=== PATIENT | male | born 1990 | race Caucasian/White ===

== ENCOUNTER 2018-06-08 12:16 | Emergency (ER) | payer OTHER ==
[~2018-06-08] VITALS: Ht 175.3 cm; Wt 81.6 kg
--- NOTE | 2018-06-08 12:30 | NUR ---
PT BIB [facility], SEIZURE EPISODE LASTED 2-4 MINS PER ROOMATE. +DIZZY. PT STS HE'S FEELING SI/-HI "I WANT TO JUMP IN FRONT OF TRAFFIC". ALERT AND ORIENTED X 4, VERBALLY RESPONSIVE, AND ABLE TO MAKE NEEDS KNOWN. PADDED SIDERAILS WITH BLANKET TO PREVENT INJURY. ON ROOM AIR, 02 SAT 98%, DENIES ANY PAIN AT THIS TIME, BREATHING EVENLY, AND UNLABORED. WILL CONTINUE TO MONTOR ACCORDINGLY.
[2018-06-08 13:33] LABS: BASOPHILS % (AUTO) 0.2 % (0.0-2.0); EOSINOPHILS % (AUTO) 0.6 % (0.0-6.0); HEMATOCRIT 47 % (39-51); HEMOGLOBIN 16.5 g/dL (13.5-17.5); LYMPHOCYTES # (AUTO) 0.6 /CMM (0.8-4.8); MEAN CORPUSCULAR HGB CONC 35 g/dl (31.0-36.0); MEAN CORPUSCULAR VOLUME 92 fL (80-96); MONOCYTES # (AUTO) 0.4 /CMM (0.1-1.30); MONOCYTES % (AUTO) 6.3 % (2.0-12.0); NEUTROPHILS # (AUTO) 4.8 /CMM (1.8-8.9); NEUTROPHILS % (AUTO) 82.9 % (43.0-81.0); PLATELET COUNT (AUTO) 264 /CMM (150-450); WHITE BLOOD COUNT (AUTO) 5.8 K/uL (4.3-11.0)
[2018-06-08 13:43] LABS: CALCIUM, SERUM 9.2 mg/dL (8.5-10.1); CARBON DIOXIDE 29 mmol/L (21-32); CHLORIDE 100 mmol/L (98-107); CREATININE 0.9 mg/dL (0.6-1.3); GLUCOSE 103 mg/dL (74-106); POTASSIUM 4.2 mmol/L (3.5-5.1); SODIUM SERUM 137 mmol/L (136-145); UREA NITROGEN, BLOOD 10 mg/dL (7-18)
[2018-06-08 13:48] LABS: ALANINE AMINOTRANSFERASE 15 U/L (12-78); ALBUMIN 3.9 g/dL (3.4-5.0); ALCOHOL, BLOOD < 3 mg/dL (0-0); ALKALINE PHOSPHATASE 84 U/L (46-116); ASPARTATE AMINOTRANSFERASE 21 U/L (15-37); BILIRUBIN,DIRECT 0.3 mg/dL (0.0-0.2); BILIRUBIN,TOTAL 1.3 mg/dL (0.2-1.0); SALICYLATE 2.8 mg/dL (2.8-20.0); TOTAL PROTEIN, SERUM 7.3 g/dL (6.4-8.2)
[2018-06-08 13:49] LABS: ACETAMINOPHEN 0 ug/ml (10-30)
[2018-06-08 13:57] LABS: VALPROIC ACID 46 ug/mL (50-100)
[2018-06-08] MEDS ORDERED: VALPROATE 500 MG in IV NS 0.9% 100 ML IV STA (15:23)
[2018-06-08 15:46] LABS: APPEARANCE,URINE Clear (CLEAR); BILIRUBIN,URINE SMALL (NEGATIVE); BLOOD, URINE Negative Ery/uL (NEGATIVE); COLOR,URINE Yellow (YELLOW); KETONES,URINE 40 (NEGATIVE); LEUKOCYTE ESTERASE ,URINE Negative (NEGATIVE); NITRITE, URINE Negative (NEGATIVE); PROTEIN,URINE Negative (NEGATIVE); UGLUCOSE Negative (NEGATIVE); UROBILINOGEN,URINE 0.2 EU/dL (0.2)
[2018-06-08 17:40] LABS: BACTERIA,URINE Rare /HPF (None Seen); RBC,URINE 0-2 /HPF (0-2); SQUAMOUS EPITHELIAL CELL,UR Few /HPF (None Seen); WBC,URINE 0-2 /HPF (0-3)
--- NOTE | 2018-06-08 17:52 | NUR ---
LEN AGRIBUSINESS PROFESSOR FOR PSYCH EVAL.
--- NOTE | 2018-06-08 19:30 | NUR ---
Received pt from SAVANNAH Srivastava. Awaiting transfer to [facility] for SI. Pt appears depressed, states "I am having a difficult time after my mom ." Has SI with plan to "hang myself." He is A, O/4, moves all extremities without difficulty. Will continue to monitor.
--- NOTE | 2018-06-08 19:32 | NUR ---
called [facility] and spoke to Dinah NUÑEZ and report given. [id number] [facility] phone number: [phone] ext [phone] psych MD: Dr. Fields
--- NOTE | 2018-06-08 19:34 | NUR ---
endorsed to Margaret NUÑEZ for fidel.
--- NOTE | 2018-06-08 22:00 | NUR ---
Pt will be transportted via [facility] to [facility]. Report given to tod, EMT. Pt notified of transfer.
[2018-06-08 22:10] VITALS: BP 136/74
[2018-06-09] MEDS ORDERED: ALPR2TAB2 PO (05:15)
[2018-06-09] MEDS ORDERED: DIVA500T2 PO ×2 (05:15)
== END 2018-06-08 22:15 ==
LOC: ER 12:30
DX: R45.851 Suicidal ideations (principal); R56.9 Unspecified convulsions; I72.9 Aneurysm of unspecified site; F31.9 Bipolar disorder, unspecified; F10.10 Alcohol abuse, uncomplicated; F17.200 Nicotine dependence, unspecified, uncomplicated; Y90.0 Blood alcohol level of less than 20 mg/100 ml; Z60.2 Problems related to living alone
CPT/HCPCS: 36415; 80048-TC; 80076-TC; 80164-TC; 80305; 81000-TC; 85025-TC; A4606; G0480; J3490; J7030; Z7610

== ENCOUNTER 2018-06-08 23:44 | Inpatient (IN) | payer OTHER ==
[~2018-06-08] VITALS: Ht 177.8 cm; Wt 77.6 kg
[2018-06-09] MEDS ORDERED: LORAZEPAM INJ 2 MG/ML VIAL IVP ONE
[2018-06-09] MEDS ORDERED: VALPROIC ACID 250 MG/5 ML UDC PO ONE
[2018-06-09] MEDS ORDERED: METOCLOPRAMIDE HCL 10 MG/2 ML VIAL IV ONE
[2018-06-09] MEDS ORDERED: METOCLOPRAMIDE HCL 10 MG/2 ML VIAL ONE
[2018-06-09] MEDS ORDERED: VALPROIC ACID 250 MG/5 ML UDC ONE
--- NOTE | 2018-06-09 | NUR ---
PT BROUGHT IN BY AMBULANCE FROM [facility] REPORTING 2 SEIZURES LASTING 2 MINUTES. PT PUT ON THE MONITOR AND PULSE OX.
[2018-06-09] MEDS ORDERED: LORAZEPAM INJ 2 MG/ML VIAL ONE (00:01)
--- NOTE | 2018-06-09 00:18 | NUR ---
PT VOMITTED AFTER ADMINISTRATION OF DEPEKENE.
--- NOTE | 2018-06-09 00:22 | NUR ---
PT TAKEN TO CT IN WHEELCHAIR.
[2018-06-09] MEDS ORDERED: MISCELLANEOUS MED 1 EA EA XX ONE (00:30)
--- NOTE | 2018-06-09 00:30 | NUR ---
PT BROUGHT BACK FROM CT. AWAKE AND ORIENTATED. SEMI-FOWLERS ON BED. PUT ON MONITOR.
[2018-06-09 00:37] LABS: BASOPHILS # (AUTO) 0.1 /CMM (0.0-0.2); BASOPHILS % (AUTO) 0.5 % (0.0-2.0); HEMATOCRIT 46 % (39-51); HEMOGLOBIN 15.5 g/dL (13.5-17.5); LYMPHOCYTES # (AUTO) 1.9 /CMM (0.8-4.8); MEAN CORPUSCULAR HGB CONC 34 g/dl (31.0-36.0); MEAN CORPUSCULAR VOLUME 93 fL (80-96); MONOCYTES # (AUTO) 0.9 /CMM (0.1-1.30); MONOCYTES % (AUTO) 7.8 % (2.0-12.0); NEUTROPHILS # (AUTO) 8.3 /CMM (1.8-8.9); NEUTROPHILS % (AUTO) 73.7 % (43.0-81.0); PLATELET COUNT (AUTO) 303 /CMM (150-450); RED BLOOD CELL COUNT(AUTO) 4.92 MIL/uL (4.5-6.0); WHITE BLOOD COUNT (AUTO) 11.3 K/uL (4.3-11.0)
[2018-06-09 00:50] LABS: CALCIUM, SERUM 9.3 mg/dL (8.5-10.1); CARBON DIOXIDE 20 mmol/L (21-32); CHLORIDE 100 mmol/L (98-107); CREATININE 1.4 mg/dL (0.6-1.3); GLUCOSE 98 mg/dL (74-106); POTASSIUM 2.9 mmol/L (3.5-5.1); SODIUM SERUM 139 mmol/L (136-145); UREA NITROGEN, BLOOD 11 mg/dL (7-18); VALPROIC ACID 45 ug/mL (50-100)
[2018-06-09] MEDS ORDERED: DIVALPROEX SODIUM 500 MG TABLET.DR PO ONE ×2 (00:52→01:00)
[2018-06-09 00:55] LABS: ALBUMIN 3.8 g/dL (3.4-5.0); ALCOHOL, BLOOD < 3 mg/dL (0-0); ALKALINE PHOSPHATASE 84 U/L (46-116); ASPARTATE AMINOTRANSFERASE 25 U/L (15-37); BILIRUBIN,DIRECT 0.2 mg/dL (0.0-0.2); BILIRUBIN,TOTAL 1.2 mg/dL (0.2-1.0); TOTAL PROTEIN, SERUM 7.3 g/dL (6.4-8.2)
--- NOTE | 2018-06-09 01:01 | NUR ---
DEPAKOTE IVPB NOT AVAILABLE IN PYXIS, NIGHT LOCKER, OR ON THE FLOOR. MD NOTIFIED. NEW ORDERS GIVEN. PT REC'D 500MG PO DEPAKOTE AND VOMITTED THE MEDICATION UP. MD NOTIFIED.
[2018-06-09 01:06] LABS: ALANINE AMINOTRANSFERASE 17 U/L (12-78)
[2018-06-09] MEDS ORDERED: LEVETIRACETAM (500MG) 500 MG/5 ML VIAL IV ONE (01:06)
--- NOTE | 2018-06-09 01:27 | NUR ---
PT RECEIVING THE IV KEPPRA INFUSION. Patient is resting comfortably in bed with eyes closed. Easily aroused. VSS
[2018-06-09] MEDS ORDERED: ONDANSETRON HCL/PF 4 MG/2 ML VIAL IVP PRN (01:30)
[2018-06-09] MEDS ORDERED: MAGNESIUM HYDROXIDE 30 ML UDC PO PRN (01:30)
[2018-06-09] MEDS ORDERED: Z GUARD REMEDY 2 OZ OINT TP PRN (01:30)
[2018-06-09] MEDS ORDERED: LORAZEPAM INJ 2 MG/ML VIAL IV PRN (01:30)
[2018-06-09] MEDS ORDERED: LEVETIRACETAM (500MG) 500 MG in IV NS 0.9% 100 ML IV SCH ×2 (01:30→13:00)
[2018-06-09] MEDS ORDERED: MAG HYDROX/AL HYDROX/SIMETH 30 ML UDC PO PRN (01:30)
[2018-06-09] MEDS ORDERED: ACETAMINOPHEN 325 MG TABLET PO PRN (01:30)
--- NOTE | 2018-06-09 02:09 | NUR ---
Patient is resting comfortably in bed with eyes closed. Easily aroused. VSS
--- NOTE | 2018-06-09 03:16 | NUR ---
REPORT GIVEN TO SAVANNAH PALUMBO/CHG.
[2018-06-09] MEDS ORDERED: Thiamine 100 MG in IV D5W 50 ML IV ONE (03:30)
[2018-06-09] MEDS ORDERED: POTASSIUM CHLORIDE 20 MEQ TAB.PRT.SR PO ONE (03:30)
--- NOTE | 2018-06-09 03:40 | NUR ---
REGASIFICATION PLANT OPERATOR ADMITTING NOTES RECEIVED PATIENT FROM ER VIA GURNEY, ACCOMPANIED BY STAFF TO ROOM 312-1. A & O X 4, NO ACUTE DISTRESS, ON RA, NO C/O PAIN VERBALIZED. RESP EVEN & UNLABORED. VS STABLE. BODY CHECK DONE, PICTURES TAKEN, PLACED IN THE CHART. PADDED THE BED SIDE RAILS FOR SAFETY. ON TELE MONITORING WITH SR 86. NO SEIZURE ACTIVITY NOTED UPON ARRIVAL TO THE UNIT. AMBULATORY TOLERATED. IV ACCESS TO LAC, INTACT PATENT AT THIS TIME, WILL START IVF ORDERED. ALL NEW ORDERS VERIFIED WITH MD, NOTED & CARRIED OUT. ALL NEEDS MET. BELONGINGS ACCOUNTED FOR & DOCUMENTED BY LIVIA WONG. BED IN LOW LOCKED POSITION. CALL LIGHT WITHIN REACH. SAFETY MEASURES IN PLACE. WILL CONTINUE TO MONITOR CLOSELY.
[2018-06-09 03:45] VITALS: BP 124/68
--- NOTE | 2018-06-09 04:00 | NUR ---
JAVA DEVELOPER CONSULTANT NOTE INFORMED NSG MCAT TUTOR TO PROVIDE THIAMINE ORDERED. MCAT TUTOR SAID IT WILL TAKE A WHILE TO ARRANGE FOR THE MED. FAXED ORDER TO [facility], [place]. WILL F/U WITH [facility] MCAT TUTOR AGAIN.
--- NOTE | 2018-06-09 04:30 | NUR ---
IV SITE CHANGED PATIENT'S IV CATH NOTED TO BE LEAKING TO LAC, REMOVED, PRESSURE DRESSING APPLIED. NEW IV CATH INSERTED TO LEFT WRIST WITH GOOD BLOOD RETURN. NO COMPLICATIONS NOTED. TOLERATED WELL.
[2018-06-09 05:00] VITALS: BP 124/68
[2018-06-09] MEDS ORDERED: ALPR2TAB2 PO (05:15)
[2018-06-09] MEDS ORDERED: DIVA500T2 PO ×2 (05:15)
[2018-06-09] MEDS: IV NS 0.9% 1,000 ML IV PRN ×2 (06:00→19:23)
[2018-06-09] MEDS ORDERED: Thiamine 100 MG/ML VIAL ONE (06:12)
--- NOTE | 2018-06-09 06:51 | NUR ---
TRUCK BENCH MECHANIC CLOSING NOTES PT SLEPT INTERMITTENTLY SINCE ADMITTED TO THE UNIT. A & O X 4, NO ACUTE DISTRESS, ON RA, NO C/O PAIN VERBALIZED. RESP EVEN & UNLABORED. VS STABLE. PADDED THE BED SIDE RAILS FOR SAFETY. ON TELE MONITORING WITH SR 80. NO SEIZURE ACTIVITY NOTED. AMBULATORY TOLERATED WITH CLOSE OBSERVATION FOR SAFETY. IV ACCESS TO LEFT WRIST INTACT PATENT, INFUSING WITH IVF ORDERED. ALL NEEDS MET. BED IN LOW LOCKED POSITION. CALL LIGHT WITHIN REACH. SAFETY MEASURES IN PLACE. WILL ENDORSE TO AM RN.
--- NOTE | 2018-06-09 07:20 | NUR ---
TELE/RN OPENING NOTE THE PATIENT IS RECEIVED IN BED. PATIENT AWAKE, ALERT AND ORIENTED X4 AND ABLE TO MAKE NEEDS KNOWN VERBALLY. RESPIRATION REGULAR AND UNLABORED. PATIENT IN ROOM AIR AND DENIES SOB. DENIES PAIN AT THIS TIME. NO SEIZURE ACTIVITY AT THIS TIME. LEFT WRIST G 22 PATENT AND NORMAL SALINE INFUSING AT 125ML/HR AND NO S/S INFILTRATION NOTED. VERBAL CUES ARE GIVEN TO KEEP SAFETY AWARENESS HIGH. BED LOW AND LOCKED. SIDE RAILS UP X3 AND PADDED. CALL LIGHT WITHIN REACH. WILL CONTINUE TO MONITOR.
[2018-06-09 08:00] VITALS: BP 113/60
[2018-06-09 08:01] VITALS: BP 113/60
[2018-06-09] MEDS: THIAMINE HCL 100 MG TABLET PO SCH (08:31)
[2018-06-09] MEDS: DIVALPROEX SODIUM 500 MG TABLET.DR PO SCH ×2 (11:01→22:18)
--- NOTE | 2018-06-09 11:04 | NUR ---
TELE/RN NOTE UPON ASSESSMENT THE PATIENT VERBALIZED HAVING SUICIDAL THOUGHTS. HE SAID HIS PLAN IS HANDING HIMSELF BUT DOES NOT KNOW HOW HE WILL DO IT. SITTER IS ASSIGNED TO THE PATIENT. ALL SAFETY MEASURES TAKEN. WILL CONTINUE TO MONITOR.
--- NOTE | 2018-06-09 11:36 | NUR ---
Social service consult requested by Dr. Robles for suicidality with a plan. Pt. is a 27 years old male who was admitted to [facility] for seizures. Pt. was in [facility] ER yesterday for suicidal ideation with a plan to hang himself. visual designer Polina evaluated the pt. and pt. willingly accepted to go to [facility] for voluntary admission. Pt. was transferred yesterday to [facility] via ambulance. SW met with pt. bedside. Pt. is alert and oriented x 4. Pt. is well groomed and mood is congruent. Pt. lives with roommates at [address] [place] [address]. Pt's emergency contact is his father Hieu Muniz . Pt. has a history of Bipolar, Depression and Anxiety. Pt's medication include Depakote and Xanax, however pt. did not have any more Xanax and has not been taking it lately. Pt. sees his psychiatrist Dr. David Wiley once every month. . Pt. states his mom passed two years ago and his grandmother passed a year ago. Pt. is suicidal and states he has a plan to hang himself. Pt. states, he would like to go back to [facility] for further psychiatric care. Pt. states, he drinks 1/5 of vodka daily and began drinking more so after his mom . Pt. has attend an alcohol treatment program at [facility] [address] many years ago. SW to send referral packet to [facility] once pt. is medically cleared for discharge. Pt. has requested to go back to [facility] for further psychiatric care since pt. is suicidal with a plan. (hang himself). MICKIE informed Med Surg 3 XIOMARA Roman regarding pt's disposition. XIOMARA Roman stated she is not comfortable with pt. not having a sitter and will be requesting a sitter bedside for safety. MICKIE provided geriatric social worker Delinquent Tax Collector Assistant Shirin Velasquez with the aforementioned information.
--- NOTE | 2018-06-09 12:23 | NUR ---
SW met with pt. again to inquire if he can contract for safety since pt. is suicidal and has a plan. Pt. stated, "Yes" when asked and contracted for safety. Pt's jennifer Daily is bedside as well and witnessed pt. "farnaz for safety."
--- NOTE | 2018-06-09 18:11 | NUR ---
TELE/RN NOTE RECEIVED ORDER FROM DR MIR FOR PSYCHIATRIST CONSULTED. NOTED AND CARRIED OUT.
--- NOTE | 2018-06-09 18:30 | NUR ---
TELE/RN NOTE THE PATIENT ALERT AND ORIENTED X4. DENIES SOB. IN ROOM AIR AND SATURATION AT 99%. DENIES PAIN. PATIENT VERBALIZES TAKING SI WITH A PLAN TO HANG HIMSELF. THE PATIENT SAID HE DOES NOT KNOW HOW HE IS GOING TO HANG HIMSELF. DENIES HAVING VISUAL OR AUDITORY HALLUCINATIONS. SITTER AT THE BEDSIDE. BED LOW AND LOCKED. SIDE RAILS UP X3. CALL LIGHT WITHIN REACH. WILL ENDORSE TO PHOTOLITH OPERATOR.
--- NOTE | 2018-06-09 18:35 | NUR ---
TELE/RN NOTE DR MIR IS MADE AWARE OF PATIENT WANTING TO GET AN ORDER OF XANAX 2 MG PO TID (HOME MEDICATION). RECEIVED THE ORDER FROM DR MIR. READ BACK, VERIFIED. NOTED AND CARRIED OUT.
[2018-06-09] MEDS: ALPRAZOLAM 1 MG TABLET PO SCH (19:49)
[2018-06-09 20:00] VITALS: BP 102/60
[2018-06-09] MEDS: ZOLPIDEM TARTRATE 5 MG TABLET PO PRN (22:18)
[2018-06-10] VITALS (7 sets, daily range): BP systolic 99–118; BP diastolic 51–68
[2018-06-10] MEDS: IV NS 0.9% 1,000 ML IV PRN (04:18)
--- NOTE | 2018-06-10 06:25 | NUR ---
ACCOUNTS RECEIVABLE COLLECTOR NOTES AWAKE & RESPONSIVE. NOT IN ANY DISTRESS. NO SOB NOTED. DENIES ANY PAIN OR DISCOMFORT AT THIS TIME. ON TELE SB @ 45 WITH IVF INFUSING WELL. WITH 1:1 SITTER. CALL LIGHT WITHIN REACH. BED IN LOWEST POSITION. SR UP X2 FOR SAFETY. WILL ENDORSE TO NEXT SHIFT.
[2018-06-10 06:46] LABS: BASOPHILS % (AUTO) 0.4 % (0.0-2.0); EOSINOPHILS % (AUTO) 1.5 % (0.0-6.0); HEMATOCRIT 41 % (39-51); HEMOGLOBIN 14.1 g/dL (13.5-17.5); LYMPHOCYTES # (AUTO) 1.9 /CMM (0.8-4.8); LYMPHOCYTES % (AUTO) 38.9 % (20.0-44.0); MEAN CORPUSCULAR HGB CONC 35 g/dl (31.0-36.0); MEAN CORPUSCULAR VOLUME 93 fL (80-96); MONOCYTES # (AUTO) 0.4 /CMM (0.1-1.30); NEUTROPHILS # (AUTO) 2.5 /CMM (1.8-8.9); NEUTROPHILS % (AUTO) 51.2 % (43.0-81.0); PLATELET COUNT (AUTO) 187 /CMM (150-450); RED BLOOD CELL COUNT(AUTO) 4.42 MIL/uL (4.5-6.0); WHITE BLOOD COUNT (AUTO) 4.9 K/uL (4.3-11.0)
[2018-06-10 07:01] LABS: CALCIUM, SERUM 8.5 mg/dL (8.5-10.1); CREATININE 0.8 mg/dL (0.6-1.3); MAGNESIUM 1.8 mg/dL (1.8-2.4); PHOSPHORUS 3.7 mg/dL (2.5-4.9); POTASSIUM 3.7 mmol/L (3.5-5.1)
--- NOTE | 2018-06-10 07:10 | NUR ---
TELE/RN OPENING NOTE THE PATIENT IS RECEIVED IN BED SLEEPING. SITTER AT THE BEDSIDE. RESPONSIVE TO VERBAL STIMULI. PATIENT IS ALERT AND ORIENTED X4 AND ABLE TO MAKE NEEDS KNOWN VERBALLY. DENIES PAIN AT THIS TIME. PATIENT IS IN ROOM AIR AND DENIES SOB AT THIS TIME. RESPIRATION REGULAR AND UNLABORED. EXTERNAL TELE MONITOR READING IS SINUS BRADYCARDIA 39. UPON ASSESSMENT NOTED THAT THE PATIENT IS STILL SUICIDAL AND WANTS TO HANG HIMSELF BUT THE PATIENT DOES NOT DETAILS OF THE PLAN. THE PATIENT IS GIVEN VERBAL CUES TO INCREASE SAFETY AWARENESS, HAD SAFETY CONVERSATION. LEFT WRIST G 22 PATENT AND NORMAL SALINE INFUSING AT 125ML/HR AND NO S/S INFILTRATION NOTED. BED LOW AND LOCKED. SIDE RAILS UP X3. CALL LIGHT WITHIN REACH. WILL CONTINUE TO MONITOR. SITTER WILL REMAIN AT THE BEDSIDE AT ALL TIMES.
--- NOTE | 2018-06-10 07:32 | NUR ---
TELE/RN NOTE 06/09/18 DR MRI GAVE PSYCH CONSULT AND THE ORDER WAS PLACED UNDER MISC. 06/10/18 PLACED THE SAME ORDER UNDER PHYSICIAN CONSULT PER POLICY. PER GPS PSYCH DOCTOR DR ROMERO WILL BE IN AFTERNOON.
--- NOTE | 2018-06-10 08:00 | NUR ---
TELE/RN NOTE THE PATIENT`S TEMP 100 F. LOWERED ROOM TEMP AND REMOVED ONE OF THE BLANKETS. WILL RECHECK THE TEMP IN 15 MIN.
--- NOTE | 2018-06-10 08:15 | NUR ---
TELE/RN NOTE TEMP IS 98.7 F.
[2018-06-10] MEDS: THIAMINE HCL 100 MG TABLET PO SCH (08:20)
[2018-06-10] MEDS: ALPRAZOLAM 1 MG TABLET PO SCH ×3 (08:20→17:17)
[2018-06-10] MEDS: DIVALPROEX SODIUM 500 MG TABLET.DR PO SCH ×2 (08:20→21:33)
--- NOTE | 2018-06-10 09:09 | NUR ---
TELE/RN NOTE RECEIVED VERBAL ORDER FROM DR MIR TO DISCONTINUE THE ORDER OF NORMAL SALINE AT 125ML/HR. THE ORDER IS READ BACK, VERIFIED. NOTED AND CARRIED OUT.
--- NOTE | 2018-06-10 09:10 | NUR ---
TELE/RN NOTE SITTER AT THE BEDSIDE. PATIENT WATCHING TV. PATIENT CALM.
[2018-06-10] MEDS: HYDROCODONE/APAP 5/325MG 1 EACH TABLET PO PRN ×3 (10:59→20:14)
--- NOTE | 2018-06-10 10:59 | NUR ---
SIERRA/RN NOTE THE PATIENT COMPLAINS OF BACK PAIN 12/29, PRN NORCO 5/325 PO 1 TAB GIVEN. WILL CONTINUE TO MONITOR.
--- NOTE | 2018-06-10 12:00 | NUR ---
TELE/RN NOTE PATIENT VERBALIZED RELIEF FROM PAIN RATING PAIN 0/10.
--- NOTE | 2018-06-10 15:29 | NUR ---
TELE/RN NOTE PATIENT COMPLAINS OF UPPER BACK 12/29. REPOSITIONING AND REST IS ENCOURAGED BUT THE PATIENT SAID IT WAS INEFFECTIVE. NORCO 5/325 MG 1 TAB PO GIVEN. WILL CONTINUE TO MONITOR.
--- NOTE | 2018-06-10 16:29 | NUR ---
TELE/RN NOTE PATIENT VERBALIZED NORCO PAIN MEDICATION BEING EFFECTIVE AND RATED PAIN 0/10. VITAL ARE STABLE.
--- NOTE | 2018-06-10 17:32 | NUR ---
TELE/RN NOTE LEFT FOLLOW UP MESSAGE TO DR ROMERO. WAITING FOR HIS VISIT TO DO PSYCH EVAL. PATIENT IS KEPT SAFE.
--- NOTE | 2018-06-10 18:08 | NUR ---
TELE/RN CLOSING NOTE THE PATIENT ALERT AND ORIENTED X4. DENIES PAIN AT THIS TIME. IN ROOM AIR AND DENIES SOB. RESPIRATION REGULAR AND UNLABORED. PATIENT STATES HAVING SI. DENIES HAVING HI. DENIES VISUAL. AUDITORY HALLUCINATION. THE PATIENT KEPT SAFE AT ALL TIMES. SITTER AT THE BEDSIDEE AT ALL TIMES. LEFT WRIST G 22 PATENT AND SALINE LOCKED. BED LOW AND LOCKED. SIDE RAILS UP X3. SIDE RAILS ARE PADDED. WILL ENDORSE TO SYNTHETIC CLOTH BINDING CUTTER.
--- NOTE | 2018-06-10 18:12 | NUR ---
MS/RN NOTE STILL WAITING FOR DR ROMERO.
[2018-06-10] MEDS: ZOLPIDEM TARTRATE 5 MG TABLET PO PRN (21:33)
[2018-06-11] VITALS: BP 112/69
[2018-06-11 04:00] VITALS: BP 124/66
[2018-06-11 05:00] VITALS: BP 124/66
--- NOTE | 2018-06-11 06:16 | NUR ---
UTILITIES OPERATOR NOTES AWAKE & RESPONSIVE. NOT IN ANY DISTRESS. NO SOB NOTED. DENIES ANY PAIN OR DISCOMFORT AT THIS TIME. ON TELE SB @ 41 WITH IV-HL PATENT & INTACT. WITH 1:1 SITTER. CALL LIGHT WITHIN REACH. BED IN LOWEST POSITION. SR UP X2 FOR SAFETY. WILL ENDORSE TO NEXT SHIFT.
[2018-06-11 08:00] VITALS: BP 129/69
--- NOTE | 2018-06-11 08:00 | NUR ---
m/s flight crew time clerk: md visit seen and examined by dr. lewis at this time. sitter remains at bedside. will continue to monitor.
[2018-06-11] MEDS: DIVALPROEX SODIUM 500 MG TABLET.DR PO SCH (08:33)
[2018-06-11] MEDS: ALPRAZOLAM 1 MG TABLET PO SCH ×2 (08:33→13:11)
[2018-06-11] MEDS: THIAMINE HCL 100 MG TABLET PO SCH (08:33)
--- NOTE | 2018-06-11 09:45 | NUR ---
m/s brazing machine operator: neuro f/u seen by elonard (kandice) at this time. pt remains stable. no seizure activity noted. sitter remains at bedside.
--- NOTE | 2018-06-11 10:10 | NUR ---
m/s deputy controller: notes dr. severino (psych) notified re: consult, spoke to him over the phone, stated, "i will go there and see him." pt made aware.
--- NOTE | 2018-06-11 10:36 | NUR ---
MICKIE was informed by showcase maker Tessa Pryor that pt. has been medically cleared for discharge. MICKEI sent clinical referral packet to [facility] intake .
--- NOTE | 2018-06-11 11:00 | NUR ---
MICKIE contacted intake at [facility] and inquired with Lisa if they received MICKIE's fax and if they will accept pt. back. Lisa informed MICKIE that since pt. has seizures he will have to go to their [place] location. Lisa requested for MICKIE to contact SAVANNAH Ness at 11:30am at .
--- NOTE | 2018-06-11 11:39 | NUR ---
MICKIE contacted SAVANNAH Ness at [place] location and was informed by that they just received the fax from [facility] and SAVANNAH Hendrix will review the clinicals and call SW back.
--- NOTE | 2018-06-11 11:45 | NUR ---
m/s mitten sewer: notes received new order to d'c pt to psych facility. order acknowledged. case management making arrangement. pt made aware.
--- NOTE | 2018-06-11 13:00 | NUR ---
m/s strategic marketing manager: notes discharge instructions given to pt and verbalized understanding. for 1600 corn picker by ambulance to go to [facility] in [place]. attempted to call for report, but luly (rn) not available at this time. will call again. will continue to monitor.
--- NOTE | 2018-06-11 13:30 | NUR ---
m/s fishing vessel mate: notes dr. severino (psych) notified, left message via voice mail and informed him that pt is being discharge to [facility] in [place] at 1600.
--- NOTE | 2018-06-11 13:45 | NUR ---
m/s glass blower: notes report given to luly (rn) for continuity of care. per luly pt needs a urine drug screen before discharge. pt, cn, and case management made aware. clean catch urine collected and sent to lab, spoke to marisol. Addendum: 06/11/18 at 1410 by DANA ISAAC RETAIL EQUIPMENT ASSOCIATE armin [email or web address]) made aware re: need for drug screen, spoke to her over the phone.
[2018-06-11] MEDS: HYDROCODONE/APAP 5/325MG 1 EACH TABLET PO PRN (14:23)
--- NOTE | 2018-06-11 14:23 | NUR ---
m/s parquetry layer: notes c/o 12/29 back pain, medicated with norco 1 tab po as ordered. sitter remains at bedside. will continue to monitor.
--- NOTE | 2018-06-11 15:15 | NUR ---
m/s lock up worker: notes urine drug screen resulted. armin (hothouse worker) made aware and will fax result to the facility.
--- NOTE | 2018-06-11 16:10 | NUR ---
m/s yonas: notes ambulance here and report given to one of the crew. h/l removed with tip intact with no bleeding, no redness, and no swelling noted. Addendum: 06/11/18 at 1613 by DANA ISAAC LVN home meds surrendered to one of the crew to give to facility.
--- NOTE | 2018-06-11 16:12 | NUR ---
m/s refuse collector supervisor: discharged discharged to [facility] in [place] in stable condition with all d'c papers, home meds, and valuables.
== END 2018-06-11 16:20 | DRG 775 ==
LOC: ER 23:45 → TELE 06-09 03:06 → MED 06-11 08:16
PROVIDERS: ADMIT Internal Medicine; ATTEND Internal Medicine
DX: F10.239 Alcohol dependence with withdrawal, unspecified (principal); N17.0 Acute kidney failure with tubular necrosis; F32.9 Major depressive disorder, single episode, unspecified; Y90.0 Blood alcohol level of less than 20 mg/100 ml; E87.6 Hypokalemia; F17.200 Nicotine dependence, unspecified, uncomplicated; R65.10 Systemic inflammatory response syndrome (SIRS) of non-infectious origin without acute organ dysfunction; Z91.14 Patient's other noncompliance with medication regimen; T51.0X1A Toxic effect of ethanol, accidental (unintentional), initial encounter; G40.509 Epileptic seizures related to external causes, not intractable, without status epilepticus; R45.851 Suicidal ideations; D72.829 Elevated white blood cell count, unspecified
CPT/HCPCS: 36415; 70450-TC; 71045-TC; 80048-TC; 80076-TC; 80164-TC; 80305; 83735-TC; 84100-TC; 84132-TC; 85025-TC; 85730-TC; 87081-TC; A4606; G0378; G0480; J1953; J2060; J2765; J3411; J7030; J7060; Z7610

== ENCOUNTER 2018-08-05 03:31 | Emergency (ER) | payer OTHER ==
[~2018-08-05] VITALS: Ht 172.7 cm; Wt 81.6 kg
[~2018-08-05 03:31] MED LIST: ALPR2TAB2 PO; DIVA500T2 PO
--- NOTE | 2018-08-05 03:49 | NUR ---
PT BIBRA FOR WITNESSED SEIZURE, TONIC CLONIC LASTING 30 SECONDS. BG 125 IN THE FIELD. HX OF SEIZURES. PT STATES "I STOPPED TAKING XANAX 3 DAYS AGO B/C I DONT LIKE HOW IT MAKES IT FEEL". +SI, -HI, -A/V HALLUCINATIONS. PT AOX4. NAD NOTED. RESP EVEN AND UNLABORED. WILL CONTINUE TO MONITOR.
--- NOTE | 2018-08-05 03:50 | NUR ---
URINE COLLECTED AND SENT TO LAB
[2018-08-05] MEDS ORDERED: DIVALPROEX SODIUM 500 MG TABLET.DR PO ONE ×2 (04:00→04:02)
--- NOTE | 2018-08-05 04:00 | NUR ---
BLOOD COLLECTED AND SENT TO LAB
[2018-08-05 04:08] LABS: BASOPHILS % (AUTO) 0.8 % (0.0-2.0); EOSINOPHILS % (AUTO) 1.2 % (0.0-6.0); HEMATOCRIT 45 % (39-51); HEMOGLOBIN 15.8 g/dL (13.5-17.5); LYMPHOCYTES # (AUTO) 1.8 /CMM (0.8-4.8); LYMPHOCYTES % (AUTO) 33.2 % (20.0-44.0); MEAN CORPUSCULAR HGB CONC 36 g/dl (31.0-36.0); MEAN CORPUSCULAR VOLUME 92 fL (80-96); MONOCYTES # (AUTO) 0.5 /CMM (0.1-1.30); MONOCYTES % (AUTO) 9.1 % (2.0-12.0); NEUTROPHILS # (AUTO) 3.1 /CMM (1.8-8.9); NEUTROPHILS % (AUTO) 55.7 % (43.0-81.0); PLATELET COUNT (AUTO) 298 /CMM (150-450); RED BLOOD CELL COUNT(AUTO) 4.82 MIL/uL (4.5-6.0); WHITE BLOOD COUNT (AUTO) 5.5 K/uL (4.3-11.0)
--- NOTE | 2018-08-05 04:09 | NUR ---
TECH AT BEDSIDE FOR EKG
[2018-08-05 04:15] LABS: CARBON DIOXIDE 24 mmol/L (21-32); CHLORIDE 102 mmol/L (98-107); CREATININE 1.1 mg/dL (0.6-1.3); GLUCOSE 99 mg/dL (74-106); POTASSIUM 3.3 mmol/L (3.5-5.1); SODIUM SERUM 138 mmol/L (136-145); UREA NITROGEN, BLOOD 16 mg/dL (7-18)
[2018-08-05 04:23] LABS: ALANINE AMINOTRANSFERASE 15 U/L (12-78); ALBUMIN 3.6 g/dL (3.4-5.0); ALCOHOL, BLOOD < 3 mg/dL (0-0); ALKALINE PHOSPHATASE 75 U/L (46-116); ASPARTATE AMINOTRANSFERASE 16 U/L (15-37); BILIRUBIN,DIRECT 0.1 mg/dL (0.0-0.2); BILIRUBIN,TOTAL 0.6 mg/dL (0.2-1.0); TOTAL PROTEIN, SERUM 6.9 g/dL (6.4-8.2)
--- NOTE | 2018-08-05 04:28 | NUR ---
PT TAKEN TO RADIOLOGY VIA WHEELCHAIR
--- NOTE | 2018-08-05 05:19 | NUR ---
MICAELA DYER PAGED
--- NOTE | 2018-08-05 06:07 | NUR ---
PT SEEN BY MICAELA, GLORIA
--- NOTE | 2018-08-05 07:24 | NUR ---
Patient is resting comfortably in bed with eyes closed. Easily aroused. VSS
--- NOTE | 2018-08-05 07:30 | NUR ---
REPORT RECEIVED FROM PEYTON NUÑEZ FOR SERG
--- NOTE | 2018-08-05 07:50 | NUR ---
PT IN BED COMFORTABLY ASLEEP, EASILY AROUSABLE BY VOICE. VSS, WILL CONTINUE TO MONITOR
--- NOTE | 2018-08-05 10:30 | NUR ---
PT IN BED COMFORTABLY ASLEEP, EASILY AROUSABLE BY VOICE. VSS, WILL CONTINUE TO MONITOR
--- NOTE | 2018-08-05 12:28 | NUR ---
ACCEPTED AT [facility] UNDER DR. THURMAN. [phone] EXT [phone] FOR REPORT.
--- NOTE | 2018-08-05 12:39 | NUR ---
CALLED [facility] FOR TRANSPORT ETA OF 1420 WAS GIVEN. TRIP#[id number]
--- NOTE | 2018-08-05 12:48 | NUR ---
REPORT GIVEN TO ANKUSH NUÑEZ OF [facility] FOR [facility]
[2018-08-05 13:58] VITALS: BP 136/71
--- NOTE | 2018-08-05 14:47 | NUR ---
[facility] ETA 30 MINUTES
--- NOTE | 2018-08-05 15:31 | NUR ---
Patient discharged to [id number] GOING TO [facility] FOR PSYCH ADMISSION in stable condition. Written and verbal after care instructions given. Patient verbalizes understanding of instruction.
== END 2018-08-05 15:35 ==
LOC: ER 03:37
DX: G40.909 Epilepsy, unspecified, not intractable, without status epilepticus (principal); R45.851 Suicidal ideations; F19.10 Other psychoactive substance abuse, uncomplicated; F32.9 Major depressive disorder, single episode, unspecified; F17.200 Nicotine dependence, unspecified, uncomplicated; Z98.890 Other specified postprocedural states; Z60.2 Problems related to living alone; Z79.899 Other long term (current) drug therapy
CPT/HCPCS: 36415; 70450-TC; 71045-TC; 80048-TC; 80076-TC; 80164-TC; 80305; 82962-TC; 85025-TC; G0480